=== PATIENT | male | born 1965 | race Two or more races ===

== ENCOUNTER 2022-09-28 23:43 | Emergency (ER) | payer OTHER ==
[~2022-09-28] VITALS: Ht 180.3 cm; Wt 122.5 kg
[2022-09-29] MEDS ORDERED: ZIAGEN300 MG (00:17)
[2022-09-29] MEDS ORDERED: AMLODIPINE 5 MG. (00:18)
[2022-09-29] MEDS ORDERED: COZAAR50 MG (00:18)
[2022-09-29] MEDS ORDERED: MONTELUKAST SOD10 MG (00:19)
[2022-09-29] MEDS ORDERED: SYNTHROID175 MCG (00:19)
== END 2022-09-29 10:54 | disposition home or self-care (01) ==
LOC: ER 23:43
DX: K52.89 Other specified noninfective gastroenteritis and colitis (principal)

== ENCOUNTER 2024-08-24 08:33 | Emergency (ER) | payer OTHER ==
[~2024-08-24] VITALS: Ht 185.4 cm; Wt 136.1 kg
[~2024-08-24 08:33] MED LIST: AMLODIPINE 5 MG.; COZAAR50 MG; MONTELUKAST SOD10 MG; SYNTHROID175 MCG; ZIAGEN300 MG
[2024-08-24] MEDS ORDERED: TOPROL XL50 M1 (08:45)
[2024-08-24] MEDS ORDERED: ALLERGY RELIEF10 M3 (08:45)
[2024-08-24] MEDS ORDERED: ACETAMINOPHEN 500 MG GEL..CAP PO ONE (09:15)
[2024-08-24 10:12] LABS: URINE APPEARANCE Clear; URINE BILIRRUBIN Negative (NEGATIVE); URINE BLOOD Negative; URINE COLOR Yellow; URINE GLUCOSE Negative (NEGATIVE); URINE KETONE Negative (NEGATIVE); URINE LEUKOCYTE Negative; URINE NITRATE Negative; URINE PROTEIN Negative (NEGATIVE); URINE UROBILINOGEN 0.2 E.U./dl
[2024-08-24 10:22] LABS: HEMATOCRIT 46.9 % (39.0-48.0); HEMOGLOBIN 15.9 g/dL (13-16.00); MEAN CORPUSCULAR HEMOGLOBIN 31.4 pg (27.00-32.0); MEAN CORPUSCULAR HGB CONC 33.8 g/dl (32.0-36.0); PLATELET COUNT 249 K/uL (150-450); RED BLOOD COUNT 5.05 M/uL (4.00-6.00); RED CELL DISTRIBUTION WIDTH 14.8 % (11.5-14.5)
[2024-08-24 10:24] LABS: URINE BACTERIA 2.5 uL (0.0-1933); URINE EPITHELIAL CELLS 0.1 uL (0.0-38.8); URINE RBC 1.8 uL (0.0-20.8); URINE WBC 0.4 uL (0.0-23.2)
[2024-08-24] MEDS ORDERED: levoFLOXacin IN DEXTROSE 5 % 5 MG/ML PIGGYBAG IV ONE (11:15)
[2024-08-24] MEDS ORDERED: KETOROLAC TROMETHAMINE 15 MG VIAL IV ONE (11:45)
== END 2024-08-24 13:49 | disposition home or self-care (01) ==
LOC: ER 08:34
PROVIDERS: General Practice
DX: K57.92 Diverticulitis of intestine, part unspecified, without perforation or abscess without bleeding (principal); J00 Acute nasopharyngitis [common cold]; Z20.822 Contact with and (suspected) exposure to COVID-19; I10 Essential (primary) hypertension; Z88.0 Allergy status to penicillin
CPT/HCPCS: 36415; 74176; 96365; 99284; J1885; J1956